=== PATIENT | female | born 2000 | race Asian ===

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

== ENCOUNTER 2022-02-05 04:20 | Emergency (ER) | payer OTHER ==
[~2022-02-05] VITALS: Ht 147.3 cm; Wt 59.0 kg
[~2022-02-05 04:20] MED LIST: IBUP-1554 PO
[2022-02-05 05:12] LABS: BASOPHILS % (AUTO) 0.3 % (0.0-2.0); EOSINOPHILS % (AUTO) 2.3 % (1.0-6.0); HEMATOCRIT 40.2 % (36-46); HEMOGLOBIN 13.1 g/dL (12.0-16.0); LYMPHOCYTES # (AUTO) 2.1 K/uL (1.0-4.8); LYMPHOCYTES % (AUTO) 12.1 % (22.0-44.0); MEAN CORPUSCULAR HGB CONC 32.6 G/dL (31.0-37.0); MEAN CORPUSCULAR VOLUME 83 fL (80-100); MONOCYTES # (AUTO) 1.3 K/uL (0.1-1.0); MONOCYTES % (AUTO) 7.8 % (2.0-9.0); NEUTROPHILS # (AUTO) 13.2 K/uL (1.8-7.7); NEUTROPHILS % (AUTO) 77.5 % (40.0-70.0); PLATELET COUNT (AUTO) 327 K/uL (150-450); RED BLOOD CELL COUNT(AUTO) 4.86 MIL/uL (4.00-5.20); RED CELL DISTRIBUTION WIDTH 14.2 % (11.5-14.5)
[2022-02-05 05:22] LABS: ANION GAP 7 mmol/L (8-16); CALCIUM, TOTAL 9.1 mg/dL (8.8-10.5); CARBON DIOXIDE 25 mmol/L (22-29); CHLORIDE 103 mmol/L (98-107); CREATININE 0.75 mg/dL (0.60-1.30); GLUCOSE,RANDOM 100 mg/dL (70-110); POTASSIUM 3.8 mmol/L (3.5-5.1); SODIUM SERUM 135 mmol/L (136-145); UREA NITROGEN, BLOOD 10 mg/dL (7-18)
[2022-02-05 05:24] LABS: ALANINE AMINOTRANSFERASE 21 U/L (12-78); ALBUMIN 3.5 g/dL (3.4-5.0); ALKALINE PHOSPHATASE 82 U/L (46-116); ASPARTATE AMINOTRANSFERASE 14 U/L (15-37); BILIRUBIN,TOTAL 0.3 mg/dL (0.1-1.0); LIPASE 68 U/L (73-393); TOTAL PROTEIN, SERUM 7.4 g/dL (6.4-8.2)
[2022-02-05 05:25] LABS: GLOMERULAR FILTR. RATE CALC > 60 mL/min (>60)
[2022-02-05] MEDS ORDERED: SODIUM CHLORIDE 0.9% 1,000 ML IV ONE (05:30)
[2022-02-05] MEDS ORDERED: MORPHINE SULFATE 4 MG/ML SYRINGE IVP ONE (05:30)
[2022-02-05] MEDS ORDERED: ONDANSETRON HCL 4 MG/2 ML VIAL IVP ONE (05:30)
[2022-02-05 05:40] LABS: COVID AG,FIA SOURCE NASAL SWAB
[2022-02-05] MEDS ORDERED: IOHEXOL 300 MG/ML 100 ML VIAL ONE (05:43)
[2022-02-05] MEDS ORDERED: SODIUM CHLORIDE 0.9% 100 ML ONE (05:43)
[2022-02-05 05:53] LABS: APPEARANCE,URINE HAZY (CLEAR); BILIRUBIN,URINE NEGATIVE (NEGATIVE); GLUCOSE, URINE (UA) NEGATIVE (NEGATIVE); KETONES,URINE NEGATIVE (NEGATIVE); LEUKOCYTE ESTERASE ,URINE LARGE (NEGATIVE); NITRATE,URINE POSITIVE (NEGATIVE); OCCULT BLOOD,URINE LARGE (NEGATIVE); PH,URINE 5.5 (5.0-8.0); PROTEIN,URINE 30-70 mg/dL (NEGATIVE); UROBILINOGEN,URINE <=1.0 mg/dL (<=1.0)
[2022-02-05 06:01] LABS: INFLUENZA TYPE A NEGATIVE FOR TYPE A (NEGATIVE); INFLUENZA TYPE B NEGATIVE FOR TYPE B (NEGATIVE)
[2022-02-05 06:04] LABS: BACTERIA,URINE Few /HPF (None Seen); SQUAMOUS EPITHELIAL CELL,UR Rare /LPF (None Seen); WBC,URINE 51-100 /HPF (0-5)
[2022-02-05 06:42] VITALS: BP 110/76
[2022-02-05] MEDS ORDERED: KETOROLAC TROMETHAMINE 30 MG/ML VIAL IVP ONE (07:00)
[2022-02-05] MEDS ORDERED: CefTRIAXone 1 GM/DEXTROSE 50 ML IV ONE (07:00)
[2022-02-05] MEDS ORDERED: IBUP-1554 PO (07:34)
[2022-02-05] MEDS ORDERED: CEPH-558 PO (07:34)
[2022-02-05] MEDS ORDERED: PHEN-674 PO (07:34)
[2022-02-05] MEDS ORDERED: ACET-2080 PO (07:34)
[2022-02-05] MEDS ORDERED: ONDA-104 PO (07:38)
== END 2022-02-05 07:59 | disposition home or self-care (01) ==
LOC: EMS 04:20
DX: N12 Tubulo-interstitial nephritis, not specified as acute or chronic (principal); F12.90 Cannabis use, unspecified, uncomplicated; Z20.822 Contact with and (suspected) exposure to COVID-19
CPT/HCPCS: 99285; 74177; 96365; 96375; 96361; 87426; 80053; 81001; 83690; 84703; 85025; 87804; 36415; 87086; 87186; J0696; J1885; J2270; J2405; J7030; J7050; Q9967

== ENCOUNTER 2022-09-14 09:38 | Emergency (ER) | payer OTHER ==
[~2022-09-14] VITALS: Ht 147.3 cm; Wt 59.1 kg
[~2022-09-14 09:38] MED LIST changes: +ACET-2080 PO; +CEPH-558 PO; +ONDA-104 PO; +PHEN-674 PO
[2022-09-14] MEDS ORDERED: ASCO500 PO (09:45)
[2022-09-14 09:47] VITALS: BP 125/70
[2022-09-14 10:51] LABS: APPEARANCE,URINE HAZY (CLEAR); BILIRUBIN,URINE NEGATIVE (NEGATIVE); GLUCOSE, URINE (UA) NEGATIVE (NEGATIVE); KETONES,URINE NEGATIVE (NEGATIVE); LEUKOCYTE ESTERASE ,URINE LARGE (NEGATIVE); NITRATE,URINE NEGATIVE (NEGATIVE); OCCULT BLOOD,URINE MODERATE (NEGATIVE); PH,URINE 5.5 (5.0-8.0); PROTEIN,URINE 30-70 mg/dL (NEGATIVE); SPECIFIC GRAVITIY, URINE 1.022 (1.003-1.030); UROBILINOGEN,URINE <=1.0 mg/dL (<=1.0)
[2022-09-14 10:55] LABS: BACTERIA,URINE Many /HPF (None Seen); SQUAMOUS EPITHELIAL CELL,UR Moderate /LPF (None Seen); WBC,URINE >100 /HPF (0-5)
[2022-09-14] MEDS ORDERED: CEPHALEXIN MONOHYDRATE 500 MG CAPSULE PO ONE (12:45)
[2022-09-14] MEDS ORDERED: PHENAZOPYRIDINE HCL 100 MG TABLET PO ONE (12:45)
[2022-09-14] MEDS ORDERED: CEPH-558 PO (12:56)
[2022-09-14] MEDS ORDERED: PHEN-674 PO (12:56)
[2022-09-14] MEDS ORDERED: MICO45CR76 VG (13:15)
== END 2022-09-14 13:21 | disposition home or self-care (01) ==
LOC: EMS 09:39
DX: N39.0 Urinary tract infection, site not specified (principal); F12.90 Cannabis use, unspecified, uncomplicated
CPT/HCPCS: 81001; 84703; 87086; 87186; 99283